=== PATIENT | male | born 1935 | race Caucasian/White ===

== ENCOUNTER → 2016-10-23 | Day surgery (SDC) | payer MEDICARE, OTHER ==
[~2016-10-23] MED LIST: ASPIRIN81 M2 PO; ENDOCET 5-3251 EACH PO; FOLIC ACID PO; GLIPIZIDE5 MG/BOTT1 PO; LIPITOR20 MG PO; LISINOPRIL10 MG PO; METFORMIN HCL500 M1 PO; MOBIC PO; TOPROL XL50 MG PO; VITAMIN B122500 MCG PO; VITAMIN B650 M2 PO; VITAMIN C500 M5 PO; VITAMIN E200 UNI3 PO
--- NOTE | ~2016-10-23 | OR ---
Unit #: [id number] #: [id number] Patient: ELENA HERNANDES [id number] [address] [place], [place] [address] [id number] MR#: [id number] NAME: ELENA HERNANDES ROOM: Date of Procedure: 10/23/2016 Admission Date: 10/23/2016 Surgeon: Kenny Pendleton M.D. : 1935 Attending Physician: Rigoberto Pendleton Primary Care Physician: Tomer Rosenthal M.D. [facility]ENTER OPERATIVE NOTE PROCEDURE PERFORMED Lumbar epidural steroid injection under x-ray guided needle placement. PREOPERATIVE DIAGNOSES 1. Acute lumbar radiculitis. 2. Herniated disk, L4-L5. 3. Degenerative disk disease, lumbosacral spine. 4. Degenerative joint disease, lumbosacral spine. 5. Facet arthropathy, lumbosacral spine. 6. Facet arthralgia, lumbosacral spine. INDICATIONS FOR PROCEDURE The patient presents today status post 2 previous lumbar approach epidural steroid injections as well as evaluation for radiofrequency ablation. The patient describes a history what he feels his radiofrequency ablation; however to date, the dictations I have received seen to merely indicate he had median nerve blocks. After lengthy discussion regarding a treatment plan going forward, the patient and I decided that an epidural steroid injection today based upon his left buttocks radicular pain and x-ray studies compatible with an L4-L5 disk lesion would be the appropriate course of action. He is to follow up in 1 week with phone call of this clinic and we may well consideration for re-referral to [facility] for additional treatment of any facet arthralgia component to his pain. He has also been started on p.o. meloxicam by his primary care provider, which seems to be helping a great deal and I suggest that he continued that medication under instruction/guidance of his primary care provider. DESCRIPTION OF PROCEDURE Following these discussions, Mr. Garcia was taken to the operating room, where he was prepped and draped in a sterile manner. Standard monitors were applied. He refused all forms of sedation and lumbar epidural space accessed at the L4-L5 level using loss of resistance technique and x-ray guidance. Needle placement was confirmed with injection of 2 mL of Omnipaque. There was good superior and inferior flow at this L4-L5 level needle placement. Total x-ray time today was 7 seconds. Following successful needle placement confirmation, the patient received an injectate containing 4 mL normal saline and 80 mg of methylprednisolone. He tolerated this procedure well. He was discharged home with followup instructions, which include an offer to return to this clinic as early as 01/31/2017 if we could be of further service to him. Dictated by... Unit #: [id number] #: [id number] Patient: JELLYKIMBERLYNELENA Paul M.D. JRG/modl TD: 10/23/2016 16:22 JOB #: [id number] CC: Tomer Rosenthal M.D. SUR[facility] CENTER OPERATIVE NOTE Page 1 of 1 X Rigoberto Pendleton MD X PROCEDURE OPERATIVE NOTE
== END | disposition home or self-care (01) ==
LOC: CCSC 11:58
DX: M51.17 Intervertebral disc disorders with radiculopathy, lumbosacral region (principal); M51.16 Intervertebral disc disorders with radiculopathy, lumbar region; M47.27 Other spondylosis with radiculopathy, lumbosacral region; M53.87 Other specified dorsopathies, lumbosacral region; Z79.82 Long term (current) use of aspirin; Z79.84 Long term (current) use of oral hypoglycemic drugs; Z79.899 Other long term (current) drug therapy; Z95.5 Presence of coronary angioplasty implant and graft; Z90.79 Acquired absence of other genital organ(s)
CPT/HCPCS: J1040; J2250